=== PATIENT | female | born 1985 ===

== ENCOUNTER → 2024-07-18 15:10 | Outpatient (REF) | payer BC, SELFPAY | LOC: PNTC 15:10 | PROVIDERS: ATTENDING PHYSICIAN Obstetrics & Gynecology | DX: O09.529 Supervision of elderly multigravida, unspecified trimester (principal) | CPT/HCPCS: 36415; 76801; 76813 ==

== ENCOUNTER → 2024-08-15 10:18 | Outpatient (REF) | payer BC, SELFPAY | LOC: PNTC 10:18 | PROVIDERS: ATTENDING PHYSICIAN Obstetrics & Gynecology | DX: O09.519 Supervision of elderly primigravida, unspecified trimester (principal); O09.529 Supervision of elderly multigravida, unspecified trimester | CPT/HCPCS: 76805 ==

== ENCOUNTER → 2024-09-12 09:14 | Outpatient (REF) | payer BC, SELFPAY | LOC: PNTC 09:14 | PROVIDERS: ATTENDING PHYSICIAN Obstetrics & Gynecology | DX: O09.529 Supervision of elderly multigravida, unspecified trimester (principal) | CPT/HCPCS: 76811; 76817 ==

== ENCOUNTER → 2024-10-24 15:57 | Outpatient (REF) | payer BC, SELFPAY | LOC: PNTC 15:57 | PROVIDERS: ATTENDING PHYSICIAN Obstetrics & Gynecology | DX: O09.529 Supervision of elderly multigravida, unspecified trimester (principal) | CPT/HCPCS: 76816 ==

== ENCOUNTER 2024-12-05 11:36 | Observation (INO) | payer BC, SELFPAY ==
[2024-12-05 12:16] LABS: % Basophils 0.4 % (0-2); % Eosinophils 2.1 % (0-6); % Immature Granulocytes 0.5 % (0-0.5); % Lymphocytes 15.9 % (20.5-51.1); % Monocytes 6.3 % (1.7-9.3); % Neutrophils 74.8 % (42.2-75.2); Absolute Eosinophils 0.2 10^3/uL (0-0.7); Absolute Lymphocytes 1.3 10^3/uL (1.2-3.4); Absolute Monocytes 0.5 10^3/uL (0.1-0.6); Absolute Neutrophils 6.3 10^3/uL (1.4-6.5); Hematocrit 34.1 % (37.0-47.0); Hemoglobin 11.8 g/dL (12.0-16.0); Mean Corp Hgb Conc. 34.6 g/dL (33.0-37.0); Mean Corpuscular Hgb 29.2 pg (27.0-31.0); Mean Corpuscular Volume 84.4 fL (81.0-99.0); Mean Platelet Volume 10.7 fL (7.4-10.4); Nucleated Red Blood Cells % 0 %; Platelet Count 238 10^3/uL (130-400); Red Blood Cell Count 4.04 10^6/uL (4.20-5.40); Red Cell Dist. Width 14.4 % (11.5-14.5); White Blood Cell Count 8.4 10^3/uL (4.8-10.8)
[2024-12-05 12:22] VITALS: BP 136/86; BMI 37.9
[2024-12-05 12:37] LABS: ALT (SGPT) 20 U/L (0-35); AST (SGOT) 23 U/L (14-36); Albumin 3.5 g/dl (3.5-5.0); Alkaline Phosphatase 69 U/L (38-126); Blood Urea Nitrogen 8 mg/dl (7-17); Calcium 9.5 mg/dl (8.4-10.2); Carbon Dioxide 22 mmol/L (22-30); Chloride 110 mmol/L (98-107); Estimated Creatinine Clearance > 125 ml/min; Glucose 82 mg/dl (70-99); Sodium 137 mmol/L (135-145); Total Bilirubin 0.3 mg/dl (0.2-1.3); Total Protein 6.4 g/dl (6.3-8.2); eGFR > 60.00
[2024-12-05 12:50] LABS: Protein/creatinine Ratio 0.4; Urine Protein 11 mg/dl
== END 2024-12-05 13:40 | disposition home or self-care (01) ==
LOC: PNTC-IN 11:36
PROVIDERS: ADMITTING PHYSICIAN Obstetrics & Gynecology; ATTENDING PHYSICIAN Obstetrics & Gynecology
DX: O13.3 Gestational [pregnancy-induced] hypertension without significant proteinuria, third trimester (principal); Z3A.32 32 weeks gestation of pregnancy; O09.523 Supervision of elderly multigravida, third trimester; O99.214 Obesity complicating childbirth; O34.13 Maternal care for benign tumor of corpus uteri, third trimester; D25.9 Leiomyoma of uterus, unspecified
CPT/HCPCS: 59025; 76816; 80053; 82570; 84156; 85025; G0378

== ENCOUNTER 2024-12-12 10:56 | Observation (INO) | payer BC, SELFPAY ==
[2024-12-12 11:20] LABS: Hematocrit 34.4 % (37.0-47.0); Hemoglobin 11.8 g/dL (12.0-16.0); Mean Corp Hgb Conc. 34.3 g/dL (33.0-37.0); Mean Corpuscular Hgb 28.9 pg (27.0-31.0); Mean Corpuscular Volume 84.3 fL (81.0-99.0); Mean Platelet Volume 10.9 fL (7.4-10.4); Platelet Count 253 10^3/uL (130-400); Red Blood Cell Count 4.08 10^6/uL (4.20-5.40); Red Cell Dist. Width 14.3 % (11.5-14.5); White Blood Cell Count 7.6 10^3/uL (4.8-10.8)
[2024-12-12 11:26] VITALS: BP 146/74; BMI 36.6
[2024-12-12 11:34] LABS: ALT (SGPT) 19 U/L (0-35); AST (SGOT) 21 U/L (14-36); Albumin 3.4 g/dl (3.5-5.0); Alkaline Phosphatase 71 U/L (38-126); Blood Urea Nitrogen 5 mg/dl (7-17); Calcium 9.2 mg/dl (8.4-10.2); Carbon Dioxide 22 mmol/L (22-30); Chloride 111 mmol/L (98-107); Estimated Creatinine Clearance > 125 ml/min; Glucose 121 mg/dl (70-99); Potassium 4.1 mmol/L (3.5-5.1); Sodium 137 mmol/L (135-145); Total Bilirubin 0.3 mg/dl (0.2-1.3); Total Protein 6.3 g/dl (6.3-8.2); eGFR > 60.00
[2024-12-12 11:55] LABS: Protein/creatinine Ratio 0.2; Urine Protein 12 mg/dl
== END 2024-12-12 12:45 | disposition home or self-care (01) ==
LOC: PNTC-IN 10:56
PROVIDERS: ADMITTING PHYSICIAN Student in an Organized Health Care Education/Training Program; ATTENDING PHYSICIAN Obstetrics & Gynecology
DX: O10.013 Pre-existing essential hypertension complicating pregnancy, third trimester (principal); Z3A.33 33 weeks gestation of pregnancy
CPT/HCPCS: 59025; 76815; 80053; 82570; 84156; 85027; G0378

== ENCOUNTER → 2024-12-19 13:58 | Outpatient (REF) | payer BC, SELFPAY | LOC: PNTC 13:58 | PROVIDERS: ATTENDING PHYSICIAN Obstetrics & Gynecology | DX: O09.529 Supervision of elderly multigravida, unspecified trimester (principal); O99.210 Obesity complicating pregnancy, unspecified trimester; O13.9 Gestational [pregnancy-induced] hypertension without significant proteinuria, unspecified trimester | CPT/HCPCS: 59025; 76815 ==

== ENCOUNTER 2024-12-20 11:44 | Inpatient (IN) | payer BC, SELFPAY ==
[2024-12-20 11:55] VITALS: BP 158/78; BMI 44.9
[2024-12-20 13:01] LABS: Hematocrit 34.8 % (37.0-47.0); Hemoglobin 12.2 g/dL (12.0-16.0); Mean Corp Hgb Conc. 35.1 g/dL (33.0-37.0); Mean Corpuscular Hgb 29.5 pg (27.0-31.0); Mean Corpuscular Volume 84.1 fL (81.0-99.0); Platelet Count 244 10^3/uL (130-400); Red Blood Cell Count 4.14 10^6/uL (4.20-5.40); Red Cell Dist. Width 14.3 % (11.5-14.5); White Blood Cell Count 8.1 10^3/uL (4.8-10.8)
[2024-12-20 13:23] LABS: ALT (SGPT) 22 U/L (0-35); AST (SGOT) 22 U/L (14-36); Albumin 3.5 g/dl (3.5-5.0); Alkaline Phosphatase 76 U/L (38-126); Blood Urea Nitrogen 7 mg/dl (7-17); Calcium 9.4 mg/dl (8.4-10.2); Carbon Dioxide 20 mmol/L (22-30); Chloride 111 mmol/L (98-107); Estimated Creatinine Clearance > 125 ml/min; Glucose 106 mg/dl (70-99); Protein/creatinine Ratio 0.4; Sodium 137 mmol/L (135-145); Total Bilirubin 0.3 mg/dl (0.2-1.3); Total Protein 6.5 g/dl (6.3-8.2); Urine Protein 14 mg/dl; eGFR > 60.00
== END 2024-12-20 15:43 | disposition home or self-care (01) | DRG 833 ==
LOC: LDRP 11:44
PROVIDERS: ADMITTING PHYSICIAN Student in an Organized Health Care Education/Training Program; FAMILY PHYSICIAN Internal Medicine
DX: O14.03 Mild to moderate pre-eclampsia, third trimester (principal); Z3A.34 34 weeks gestation of pregnancy
CPT/HCPCS: 59025; 80053; 82570; 84156; 85027; 86850; 86900; 86901; G0378

== ENCOUNTER 2024-12-26 19:07 | Inpatient (IN) | payer BC, SELFPAY ==
[2024-12-26 15:43] VITALS: BP 145/75; BMI 39.5
[2024-12-26 17:50] LABS: Hematocrit 35.4 % (37.0-47.0); Hemoglobin 12.3 g/dL (12.0-16.0); Mean Corp Hgb Conc. 34.7 g/dL (33.0-37.0); Mean Corpuscular Volume 84.7 fL (81.0-99.0); Platelet Count 235 10^3/uL (130-400); Red Cell Dist. Width 14.6 % (11.5-14.5)
[2024-12-26 18:01] LABS: ALT (SGPT) 22 U/L (0-35); AST (SGOT) 24 U/L (14-36); Albumin 3.5 g/dl (3.5-5.0); Alkaline Phosphatase 85 U/L (38-126); Blood Urea Nitrogen 8 mg/dl (7-17); Calcium 9.6 mg/dl (8.4-10.2); Carbon Dioxide 21 mmol/L (22-30); Chloride 111 mmol/L (98-107); Estimated Creatinine Clearance > 125 ml/min; Glucose 88 mg/dl (70-99); Potassium 4.3 mmol/L (3.5-5.1); Sodium 137 mmol/L (135-145); Total Protein 6.5 g/dl (6.3-8.2); eGFR > 60.00
[2024-12-26] MEDS: TRANDATE 200 MG PO (19:07)
[2024-12-26] MEDS: APRESOLINE 10 MG IV ×2 (19:32→21:13)
[2024-12-26] MEDS: LR 1000 IV (20:10)
[2024-12-26] MEDS: MAGNESIUM SULFATE 100 IV (20:10)
[2024-12-26] MEDS: MAGNESIUM SULFATE 40 GRAM 1000 IV (20:30)
[2024-12-26] MEDS: CELESTONE SOLUSPAN 2 MG IM (20:44)
[2024-12-26 22:26] LABS: Hematocrit 35.3 % (37.0-47.0); Hemoglobin 12.2 g/dL (12.0-16.0); Mean Corp Hgb Conc. 34.6 g/dL (33.0-37.0); Mean Corpuscular Volume 84.4 fL (81.0-99.0); Nucleated Red Blood Cells % 0 %; Platelet Count 225 10^3/uL (130-400); Red Cell Dist. Width 14.6 % (11.5-14.5)
[2024-12-26] MEDS: CYTOTEC 25 MICROGRAM VAG (23:02)
[2024-12-27] MEDS: CYTOTEC 50 MICROGRAM PO ×3 (02:58→11:07)
[2024-12-27] MEDS: TYLENOL 1000 MG PO ×2 (03:10→11:07)
[2024-12-27] MEDS: TRANDATE 200 MG PO ×2 (08:40→20:46)
[2024-12-27] MEDS: PRENATAL PLUS 1 TABLET PO (08:40)
[2024-12-27] MEDS: LR 1000 IV ×2 (09:07→22:29)
[2024-12-27] MEDS: CYTOTEC PO ×3 (15:00→23:00)
[2024-12-27] MEDS: MAGNESIUM SULFATE 40 GRAM 1000 IV (15:42)
[2024-12-27] MEDS: PENICILLIN 110 UNITS IV (15:54)
[2024-12-27] MEDS: PITOCIN 30 UNITS/NSS 500 ML IV (15:54)
[2024-12-27] MEDS: SUBLIMAZE 100 MCG EPIDURAL (18:06)
[2024-12-27] MEDS: FENTANYL/BUPIVACAINE 100 EPIDURAL (18:06)
[2024-12-27] MEDS: PENICILLIN 55 UNITS IV (20:37)
[2024-12-27] MEDS: CELESTONE SOLUSPAN 2 MG IM (20:44)
[2024-12-28] MEDS: PENICILLIN 55 UNITS IV (00:22)
[2024-12-28] MEDS: PITOCIN 30 UNITS/NSS 500 ML IV (00:53)
[2024-12-28] MEDS: XYLOCAINE-MPF 1% VIAL 30 ML INFIL (00:55)
[2024-12-28] MEDS: CYTOTEC 800 MCG RECTAL (01:37)
[2024-12-28] MEDS: TRANEXAMIC ACID 100 IV (01:38)
[2024-12-28] MEDS: HEMABATE 250 MCG IM (03:11)
[2024-12-28] MEDS: MORPHINE SULFATE 2 MG IV (03:56)
[2024-12-28] MEDS: ANCEF 10 IV (06:45)
[2024-12-28 07:49] VITALS: BP 127/70
--- NOTE | 2024-12-28 07:59 | OR.RPT ---
Operative Report
Operative Report
Procedure date: 12/28/2024
Preop diagnosis: hemorrhage, retained placenta
Postop diagnosis: same
Surgeon: Arian
Anesthesia: General, Bard
EBL: 100mL
Findings: Bimanual exam performed and uterus firm, pieces of retained placenta removed. Banjo curettage performed and more tissue removed. Curettage and bimanual exams performed until all tissue removed. Fundus was firm and bleeding was well
controlled at the end of the procedure. Fany was placed with 120cc in the cervical seal and was placed to wall suction at 80 mmHg once in PACU.
Complications: none
Indication: Patient is a 39yo s/p spontaneous vaginal delivery at 0052 after induction for chronic hypertension with superimposed preeclampsia with severe features. Following delivery, she had increased bleeding and a bimanual exam was
performed and multiple clots evacuated. She was given TXA and Cytotec 800mcg [place] with improvement in bleeding. She had more trickling and then Hemabate was given. The bleeding improved briefly and then she had more trickling on fundal checks. Another
bimanual exam was performed and multiple clots evacuated. Fany was placed. She had improvement in her bleeding and then after a couple hours, she had bleeding around the Fany. The Fany was removed and there was tissue in the suction concerning for
retained placenta. Patient was consented for dilation and curettage. OR was notified.
Procedure:
Patient was taken to the operating room and placed under general anesthesia. She was placed in the dorsal lithotomy position with Kurtis type stirrups. She was prepped and draped in the normal sterile fashion. A Moses catheter was already in place
draining clear urine. Bimanual exam was performed and small clots were evacuated. A Garnett retractor was placed in the posterior aspect of the vagina. The cervix was grasped with a Ring forceps. The cervix was inspected and there were no lacerations.
A Banjo curette was introduced to the fundus and multiple passes were made and tissue consistent with retained placenta was removed. Bimanual exam was also performed and tissue was removed. Bimanual exam and curettage were performed until no further
tissue was removed. There was improvement in bleeding and her fundus was firm. Fany was placed with 120cc in the cervical seal and was attached to 80mmHg of wall suction once in PACU. Patient was awakened from anesthesia and taken to PACU in stable
condition. Counts were correct. Moses catheter remains in place draining clear urine.
[2024-12-28 08:00] VITALS: BP 139/87
[2024-12-28 08:15] VITALS: BP 142/85
--- NOTE | 2024-12-28 08:16 | HPS.HSE ---
Family Physician
-
Family Physician: NO INTERVIEW UNKNOWN
Chief Complaint
-
induction of labor
History of Present Illness
Patient is a 39yo who presented to Labor and Delivery on 12/26 from [facility] for oligo. She was admitted for observation. She then had sustained severe range blood pressures and was started on magnesium for seizure prophylaxis. Her induction was
started with Cytotec. She then progressed to 3cm and received Pitocin. She had a spontaneous vaginal delivery on the morning of 12/28. After delivery, she had increased bleeding and received Cytotec, TXA and hemabate. She also had a Fany. She started
bleeding around the Fany and when the Fany was removed, there appeared to be tissue consistent with retained placenta so patient was consented for a dilation and curettage.
complications:
- cHTN
- Hx of PEC w/ SF with delivery at 34wks
- Uterine fibroid
- Cervical polyp
- BMI 36
- Advanced maternal age
- Rubella non-immune
PMHx: cHTN, obesity, fibroid
Meds: bASA, PNV
Surghx: denies
NKDA
Socialhx: denies tobacco, etoh or illicit drug use
Famhx: mom w/ HTN, MGF w/ heart disease
OBHx: @34wks- IOL for PEC w/ SF
Medical History
Past Medical History
Past Medical History: Reports HTN
Past Surgical History: Reports None
Social History
Tobacco: Non-smoker
Alcohol: None
Drug: None
Family History
Family History: Not pertinent
Allergies / Home Medications
Allergies reflects when Allergies were last updated in [facility].
Home Medications with original date entered in [facility]
Allergy/Medication List:
Meds: labetalol 200mg BID, bASA, PNV
NKDA
Review of Systems
-
A 12 point ROS was completed and negative except as noted: Yes
Physical Exam
Vital Signs
Vital Signs
Temp Pulse Resp BP Pulse Ox
98 F 69 12 127/70 100
12/28/24 07:49 12/28/24 07:49 12/28/24 07:49 12/28/24 07:49 12/28/24 07:49
Physical Exam
General: Well Developed and Well Nourished
HEENT: NormoCephalic
Respiratory: Non Labored Respirations
Cardiac: Regular Rhythm
Skin: Warm and Dry
Neuro: Awake and Alert
Psych: Calm
Laboratory Results
-
12/26/24 22:20
12/26/24 17:40
Laboratory Results
Total Bilirubin 0.2 mg/dl (0.2-1.3) 12/26/24 17:40
AST 24 U/L (14-36) 12/26/24 17:40
ALT 22 U/L (0-35) 12/26/24 17:40
Alkaline Phosphatase 85 U/L (38-126) 12/26/24 17:40
Impression/Plan
-
IMPRESSION:
Patient is a 39yo PPD#0 s/p with hemorrhage and concern for retained placenta
PLAN:
Following delivery, patient had increased bleeding and a bimanual exam was performed and multiple clots evacuated. She was given TXA and Cytotec 800mcg [place] with improvement in bleeding. She had more trickling and then Hemabate was given. The bleeding
improved briefly and then she had more trickling on fundal checks. Another bimanual exam was performed and multiple clots evacuated. Fany was placed. She had improvement in her bleeding and then after a couple hours, she had bleeding around the
Fany. The Fany was removed and there was tissue in the suction concerning for retained placenta. Patient was consented for dilation and curettage including risks, benefits and alternatives. She was consented for a blood transfusion if needed. 2g of
Ancef was ordered for antibiotic prophylaxis. OR was notified.
[2024-12-28] MEDS: TRANDATE 200 MG PO ×2 (11:11→20:09)
[2024-12-28] MEDS: PRENATAL PLUS 1 TABLET PO (11:11)
[2024-12-28] MEDS: MAGNESIUM SULFATE 40 GRAM 1000 IV (12:30)
[2024-12-28] MEDS: LR 1000 IV (15:54)
[2024-12-28] MEDS: MOTRIN 600 MG PO (20:09)
[2024-12-29 06:25] LABS: Hematocrit 31.2 % (37.0-47.0); Hemoglobin 10.4 g/dL (12.0-16.0)
[2024-12-29] MEDS: TRANDATE 200 MG PO ×2 (08:50→19:52)
[2024-12-29] MEDS: COLACE 100 MG PO ×2 (08:51→19:52)
[2024-12-29] MEDS: PRENATAL PLUS 1 TABLET PO (08:51)
[2024-12-29] MEDS: FEOSOL 325 MG PO (09:57)
[2024-12-29] MEDS: MOTRIN 600 MG PO (20:47)
[2024-12-30 05:53] LABS: Hematocrit 29.5 % (37.0-47.0); Hemoglobin 9.8 g/dL (12.0-16.0)
[2024-12-30] MEDS: MOTRIN 600 MG PO (07:54)
[2024-12-30] MEDS: COLACE 100 MG PO (07:55)
[2024-12-30] MEDS: TRANDATE 200 MG PO (07:55)
[2024-12-30] MEDS: FEOSOL 325 MG PO (07:55)
[2024-12-30] MEDS: PRENATAL PLUS 1 TABLET PO (07:55)
[2025-01-02 17:15] LABS: Syphilis/T. pallidum Ab Reflex Negative (Negative)
[2025-01-02 17:15] LABS: Syphilis/T. pallidum Ab Reflex Negative (Negative)
== END 2024-12-30 11:38 | disposition home or self-care (01) | DRG 768 ==
LOC: LDRP 19:07
PROVIDERS: Obstetrics & Gynecology; Student in an Organized Health Care Education/Training Program; ADMITTING PHYSICIAN Obstetrics & Gynecology; ATTENDING PHYSICIAN Obstetrics & Gynecology
PROC: 10E0XZZ Delivery of Products of Conception, External Approach (ICD-10-PCS; 2024-12-28)
PROC: 10907ZC Drainage of Amniotic Fluid, Therapeutic from Products of Conception, Via Natural or Artificial Opening (ICD-10-PCS; 2024-12-28)
PROC: 10D Obstetrics, Pregnancy, Extraction (ICD-10-PCS; 2024-12-28)
PROC: 0W3R0ZZ Control Bleeding in Genitourinary Tract, Open Approach (ICD-10-PCS; 2024-12-28)
PROC: 0KQM0ZZ Repair Perineum Muscle, Open Approach (ICD-10-PCS; 2024-12-28)
PROC: 0UQMXZZ Repair Vulva, External Approach (ICD-10-PCS; 2024-12-28)
DX: O41.03X0 Oligohydramnios, third trimester, not applicable or unspecified (principal); Z37.0 Single live birth; O72.2 Delayed and secondary postpartum hemorrhage; O72.1 Other immediate postpartum hemorrhage; O70.1 Second degree perineal laceration during delivery; O14.14 Severe pre-eclampsia complicating childbirth; O71.82 Other specified trauma to perineum and vulva; Z3A.35 35 weeks gestation of pregnancy
CPT/HCPCS: 59025; 76815; 76820; 80053; 85014; 85018; 85025; 85027; 86780; 86850; 86900; 86901; 87070; 88305; 88307